=== PATIENT | male | born 1970 | race Caucasian/White ===

== ENCOUNTER 2017-08-06 13:33 | Emergency (ER) | payer OTHER ==
[2017-08-06] MEDS: HYDROCODONE/APAP (5/325) TAB PO (15:36)
[2017-08-06] MEDS: SOD CHLORIDE 0.9% 1,000 ML IV (18:08)
[2017-08-06 18:16] LABS: WHITE BLOOD COUNT 22.9 10^3/ul (4.8-10.8)
[2017-08-06 18:16] LABS: ABNORMAL IP MESSAGE 1; ADD MAN DIFF? NO; BASOPHIL # 0.1 10^3/ul (0.0-0.1); BASOPHILS % 0.4 % (0.0-2.0); EOSINOPHILS # 0.2 10^3/ul (0.0-0.5); EOSINOPHILS % 0.7 % (0.0-7.0); HEMATOCRIT 47.4 % (42.0-52.0); HEMOGLOBIN 15.9 g/dl (14.0-18.0); LYMPHOCYTES # 3.9 10^3/ul (0.8-2.9); LYMPHOCYTES % 16.9 % (15.0-51.0); MEAN CORPUSCULAR HEMOGLOBIN 32.8 pg (29.0-33.0); MEAN CORPUSCULAR HGB CONC 33.5 g/dl (32.0-37.0); MEAN CORPUSCULAR VOLUME 97.7 fl (82.0-101.0); MEAN PLATELET VOLUME 9.9 fl (7.4-10.4); MONOCYTE # 2.4 10^3/ul (0.3-0.9); MONOCYTES % 10.6 % (0.0-11.0); NEUTROPHIL # 16.2 10^3/ul (1.6-7.5); NEUTROPHILS % 70.9 % (39.0-77.0); PLATELET COUNT 278 10^3/UL (140-415); POSITIVE DIFF @See below; RED BLOOD COUNT 4.85 10^6/ul (4.70-6.10); RED CELL DISTRIBUTION WIDTH 12.9 % (11.5-14.5)
[2017-08-06] MEDS: KETOROLAC 30 MG INJ IV (18:31)
[2017-08-06 18:34] LABS: ALANINE AMINOTRANSFERASE 31 IU/L (13-69); ALBUMIN 4.4 g/dl (3.3-4.9); ALBUMIN/GLOBULIN RATIO 1.41; ALKALINE PHOSPHATASE 64 IU/L (42-121); ANION GAP 16 (8-16); ASPARTATE AMINO TRANSFERASE 21 IU/L (15-46); BILIRUBIN,INDIRECT 0.4 mg/dl (0-1.1); BILIRUBIN,TOTAL 0.4 mg/dl (0.2-1.3); BLOOD UREA NITROGEN 21 mg/dl (7-20); CALCIUM 9.7 mg/dl (8.4-10.2); CARBON DIOXIDE 26 mmol/L (21-31); CHLORIDE 105 mmol/L (97-110); CREATININE 1.04 mg/dl (0.61-1.24); GLUCOSE 129 mg/dl (70-220); POTASSIUM 3.7 mmol/L (3.5-5.1); SODIUM 143 mmol/L (135-144); TOTAL PROTEIN 7.5 g/dl (6.1-8.1)
== END 2017-08-06 19:24 | disposition home or self-care (01) ==
LOC: FTE 13:33
DX: S72.452A Displaced supracondylar fracture without intracondylar extension of lower end of left femur, initial encounter for closed fracture (principal); E11.9 Type 2 diabetes mellitus without complications; F17.210 Nicotine dependence, cigarettes, uncomplicated; R55 Syncope and collapse; W18.39XA Other fall on same level, initial encounter; Y92.9 Unspecified place or not applicable; Z96.652 Presence of left artificial knee joint
CPT/HCPCS: 73550; 73562; 73590; 73610-RT; 73630; 80053; 82962; 85025; 93005; 96374; 99285-25

== ENCOUNTER 2018-06-15 09:04 | Day surgery (SDC) | payer OTHER ==
[2018-06-15] MEDS ORDERED: CEFAZOLIN 2 GM/50 ML (PMX) 50 ML IVPB (11:00)
[2018-06-15] MEDS ORDERED: SOD CHLORIDE 0.9% 1,000 ML IV (11:00)
[2018-06-15] MEDS ORDERED: PROPOFOL 20 ML (11:39)
[2018-06-15] MEDS ORDERED: CEFAZOLIN 1 GM INJ (11:39)
[2018-06-15] MEDS ORDERED: MIDAZOLAM 1 MG/ML 2 ML INJ (11:40)
[2018-06-15] MEDS ORDERED: FENTAnyl 50 MCG/ML VIAL (11:40)
[2018-06-15] MEDS ORDERED: MEPERIDINE 25 MG INJ IV (12:00)
[2018-06-15] MEDS ORDERED: HYDROmorphONE 1 MG/5 ML IV SYRINGE IV ×2 (12:00)
[2018-06-15] MEDS ORDERED: EPHEDrine SULFATE 50 MG/5 ML SYG IV (12:00)
[2018-06-15] MEDS ORDERED: LABETALOL HCL 20MG INJ IV (12:00)
[2018-06-15] MEDS ORDERED: FENTAnyl 50 MCG/ML VIAL IV (12:00)
[2018-06-15] MEDS ORDERED: hydrALAzine 20 MG INJ IV (12:00)
[2018-06-15] MEDS ORDERED: DIPHENHYDRAMINE 50 MG INJ IV (12:00)
[2018-06-15] MEDS ORDERED: ONDANSETRON 4 MG INJ IV (12:00)
[2018-06-15] MEDS ORDERED: OXYCODONE/ACETAMINOPHEN (5/325) TAB PO (12:00)
[2018-06-15] MEDS ORDERED: METOCLOPRAMIDE 10 MG INJ IV (12:00)
[2018-06-15] MEDS ORDERED: DEXAMETHASONE 4 MG/ML 1 ML INJ (12:13)
[2018-06-15] MEDS ORDERED: ONDANSETRON 4 MG INJ (12:13)
[2018-06-15] MEDS ORDERED: METOCLOPRAMIDE 10 MG INJ (12:13)
[2018-06-15] MEDS ORDERED: KETOROLAC 30 MG INJ (12:13)
[2018-06-15] MEDS: BUPIVACAINE 0.25% (MPF) 30 ML INJ (12:19)
[2018-06-15] MEDS ORDERED: EPHEDrine SULFATE 50 MG/5 ML SYG (12:29)
[2018-06-15] MEDS ORDERED: HYDROCODONE/APAP (5/325) TAB PO (13:00)
[2018-06-15] MEDS: FENTAnyl 50 MCG/ML VIAL IV (13:20)
== END 2018-06-15 14:26 | disposition home or self-care (01) ==
LOC: SDS 09:04
DX: M79.89 Other specified soft tissue disorders (principal); E11.9 Type 2 diabetes mellitus without complications; Z87.891 Personal history of nicotine dependence; J44.9 Chronic obstructive pulmonary disease, unspecified
CPT/HCPCS: 14041; 82962; 88307